=== PATIENT | female | born 1940 | race Hispanic/Latino ===

== ENCOUNTER 2017-07-15 13:05 | Emergency (ER) | payer MEDICARE ==
[~2017-07-15] VITALS: Ht 160 cm; Wt 53.5 kg
[2017-07-15] MEDS ORDERED: EVISTA60 MG PO (13:34)
[2017-07-15] MEDS ORDERED: NEXIUM20 MG (13:34)
[2017-07-15] MEDS ORDERED: ARICEPT5 MG PO (13:36)
[2017-07-15] MEDS ORDERED: CICLOPIROX15 GM TOP (13:53)
[2017-07-15 14:14] VITALS: BP 158/78
== END 2017-07-15 14:05 | disposition home or self-care (01) ==
LOC: FSED 13:05
DX: M79.671 Pain in right foot (principal); M79.674 Pain in right toe(s); W22.09XA Striking against other stationary object, initial encounter; Y92.008 Other place in unspecified non-institutional (private) residence as the place of occurrence of the external cause; F03.90 Unspecified dementia, unspecified severity, without behavioral disturbance, psychotic disturbance, mood disturbance, and anxiety; K21.9 Gastro-esophageal reflux disease without esophagitis
CPT/HCPCS: 99282

== ENCOUNTER → 2018-07-16 | Outpatient (CLI) | payer MEDICARE ==
[~2018-07-16] MED LIST: ARICEPT5 MG PO; CICLOPIROX15 GM TOP; EVISTA60 MG PO; NEXIUM20 MG
--- NOTE | 2018-07-16 17:33 | Diagnostic Imaging Report ---
EXAM: US THYROID DATE: 07/16/2018 11:58 AM INDICATION: ^[id number] ^[id number] ^THYROID NODULE COMPARISON: Thyroid ultrasound, 09/30/2016, 08/30/2015, 03/09/2015 FINDINGS: Grayscale and color flow Doppler ultrasound of thyroid was performed. Right lobe: 5.3 x 3.1 x 3.3 cm. Homogeneous echotexture. Normal color flow vascularity. Nodules: There is a 3.6 x 2.4 x 2.7 cm cyst in the mid to lower right thyroid. There is internal debris and thin septations, similar to the appearance on prior examinations. Previously this measured 2.7 x 2.3 x 2.5 cm on 09/30/2016; 2.5 x 3.1 x 2.4 cm on 08/30/2015; and 2.9 x 1.9 x 2.5 cm on 03/09/2015. TR1. Left lobe: 3.9 x 1.3 x 1.4 cm. Homogeneous echotexture. Normal color flow vascularity. Nodules: None Isthmus: 0.3 cm thickness. IMPRESSION: Generally stable appearance of dominant right thyroid cyst given slight differences in technique. This does not meet criteria for biopsy by ACR TI-RADS. No new nodules. ACR TI-RADS Lexicon: TR1, Benign: No FNA TR2, Not Suspicious: No FNA. TR3a (<1.5 cm): No follow-up. TR3b (1.5-2.5 cm), Mildly Suspicious: Follow at 1, 3, 5 years. TR3c (>2.5 cm), Mildly Suspicious: FNA. TR4a (<1.0 cm): No follow-up. TR4b (1.0-1.5 cm), Moderately Suspicious: Follow at 1, 2, 3, 5 years. TR4c (>1.5 cm), Moderately Suspicious: FNA. TR5a (<0.5 cm): No follow-up. TR5b (0.5-1.0 cm), Highly Suspicious: Follow at 1, 2, 3, 4, 5 years. TR5c (>1.0 cm), Highly Suspicious: FNA. Literature: ACR Thyroid Imaging, Reporting and Data System (TI-RADS): White Paper of the ACR TI-RADS Committee. J Am [employer] Radiol 2017. Signed by: Dr. Doug Smith M.D. on 07/16/2018 5:30 PM
== END ==
LOC: US 11:43
PROVIDERS: ATTEND Otolaryngology
DX: E04.1 Nontoxic single thyroid nodule (principal)
CPT/HCPCS: 76536